=== PATIENT | male | born 1980 | race Caucasian/White ===

== ENCOUNTER 2017-10-09 21:35 | Emergency (ER) | payer MEDICAID | END 2017-10-09 23:20 | disposition home or self-care (01) | LOC: D.ER 21:35 | DX: M54.12 Radiculopathy, cervical region (principal); F17.200 Nicotine dependence, unspecified, uncomplicated ==

== ENCOUNTER 2017-10-20 15:08 | Emergency (ER) | payer MEDICAID | END 2017-10-20 15:39 | disposition home or self-care (01) | LOC: D.ER 15:08 | DX: S16.1XXA Strain of muscle, fascia and tendon at neck level, initial encounter (principal); X58.XXXA Exposure to other specified factors, initial encounter; Y93.89 Activity, other specified; Y92.017 Garden or yard in single-family (private) house as the place of occurrence of the external cause; S29.012A Strain of muscle and tendon of back wall of thorax, initial encounter; M62.838 Other muscle spasm ==

== ENCOUNTER 2017-11-14 19:04 | Emergency (ER) | payer MEDICAID | END 2017-11-14 20:25 | disposition home or self-care (01) | LOC: D.ER 19:04 | DX: S61.411A Laceration without foreign body of right hand, initial encounter (principal); W29.8XXA Contact with other powered hand tools and household machinery, initial encounter; Y93.89 Activity, other specified; Y92.019 Unspecified place in single-family (private) house as the place of occurrence of the external cause ==

== ENCOUNTER 2017-12-23 19:53 | Emergency (ER) | payer MEDICAID ==
[~2017-12-23] VITALS: Ht 167.6 cm; Wt 65.9 kg
[2017-12-23 19:56] VITALS: BP 125/71; Ht 167.6 cm; Wt 65.9 kg
== END 2017-12-23 21:23 | disposition home or self-care (01) ==
LOC: D.ER 19:53
DX: S51.012A Laceration without foreign body of left elbow, initial encounter (principal); W26.9XXA Contact with unspecified sharp object(s), initial encounter; Y93.9 Activity, unspecified; Y92.9 Unspecified place or not applicable